=== PATIENT | male | born 1945 | race Two or more races ===

== ENCOUNTER 2023-08-12 22:08 | Emergency (ER) | payer OTHER ==
[~2023-08-12] VITALS: Ht 177.8 cm; Wt 81.6 kg
[2023-08-12] MEDS ORDERED: AMLODIPINE-OLM1 EAC2 PO (22:19)
[2023-08-12] MEDS ORDERED: PEPCID AC10 MG PO (22:19)
[2023-08-12] MEDS ORDERED: DOXAZOSIN MESYLA2 MG PO (22:19)
[2023-08-12] MEDS ORDERED: SIMVASTATIN5 MG PO (22:19)
[2023-08-12] MEDS ORDERED: SYNTHROID50 MCG (22:20)
[2023-08-12] MEDS ORDERED: MICARDIS80 MG (22:20)
[2023-08-12 23:26] LABS: HEMATOCRIT 39.9 % (39.0-48.0); HEMOGLOBIN 13.1 g/dL (13-16.00); MEAN CELL VOLUME 92.2 fL (80.0-100.00); MEAN CORPUSCULAR HEMOGLOBIN 30.4 pg (27.00-32.0); MEAN CORPUSCULAR HGB CONC 32.9 g/dl (32.0-36.0); PLATELET COUNT 170 K/uL (150-450); RED BLOOD COUNT 4.33 M/uL (4.00-6.00); RED CELL DISTRIBUTION WIDTH 13.4 % (11.5-14.5)
[2023-08-12 23:46] LABS: ALBUMIN 3.8 gm/dL (3.4-5.0); BILIRUBIN TOTAL 0.78 mg/dL (0.3-1.2); CALCIUM 9.1 mg/dL (8.5-10.1); CREATININE SERUM 1.61 mg/dL (0.70-1.30); GFR 41.93; POTASSIUM 4.09 mEq/L (3.5-5.1); TOTAL PROTEIN 6.8 gm/dL (6.4-8.2)
== END 2023-08-13 02:51 | disposition home or self-care (01) ==
LOC: ER 22:08
PROVIDERS: General Practice
DX: S00.03XA Contusion of scalp, initial encounter (principal); W18.39XA Other fall on same level, initial encounter; Y93.89 Activity, other specified; Y92.89 Other specified places as the place of occurrence of the external cause; Y99.9 Unspecified external cause status; M51.36 Other intervertebral disc degeneration, lumbar region
CPT/HCPCS: 36415; 70450; 72125; 73000; 96372; 99284; J2360